=== PATIENT | female | born 1965 | race Caucasian/White ===

== ENCOUNTER 2022-10-06 21:10 | Emergency (ER) | payer BC, OTHER ==
[2022-10-06] MEDS ORDERED: ACETAMINOPHEN 500 MG TABLET (FP) ONE (21:23)
[2022-10-06 21:31] VITALS: BP 119/84; PULSE 78; RESP 18; TEMP 98.3; BMI 22.8
== END 2022-10-06 22:45 | disposition home or self-care (01) ==
LOC: FER 21:10
DX: S42.292A Other displaced fracture of upper end of left humerus, initial encounter for closed fracture (principal); S83.92XA Sprain of unspecified site of left knee, initial encounter; V00.321A Fall from snow-skis, initial encounter
CPT/HCPCS: 73030-TC-LT-FY; 73562-TC-LT-FY; 99284-25